=== PATIENT | male | born 1990 | race Caucasian/White ===

== ENCOUNTER 2025-06-04 16:50 | Emergency (ER) | payer OTHER, SELFPAY ==
[2025-06-04 17:00] VITALS: BP 100/68
[2025-06-04] MEDS: ADACEL 0.5 ML IM (18:37)
--- NOTE | 2025-06-04 19:25 | ED.SKININJ ---
HPI-Injury
General
Chief Complaint: Skin Surface Trauma
Source: patient
Exam Limitations: none
Time Seen by Provider: 06/04/25 17:58
Nursing documentation reviewed up to this point in time: agreed with
History of Present Illness-Injury
Is this injury a work related problem?: No
Is pt an associate of [facility]?: No
Initial Injury comments:
Patient to ED with crush injury to left middel finger. He states he was trying to hang a heavy clock and it fell. Pain and swelling to distal left 3rd finger. Small laceration to dorsum of distal finger. Injury occurred just [employer]
Past History
Past History
ED Past Medical History: None
ED Past Surgical History: None
Social History
Tobacco: Non-smoker
Alcohol: Occasional
Personal:
Living: alone
Employment: Employed
Review of Systems
Review of Systems
Allergies reviewed?: Yes
All Other Systems: ROS reviewed and negative except as documented in HPI and ROS
Constitutional: Reports no symptoms
Musculoskeletal: Reports joint pain (Pain to left distal third finger)
Skin: Reports other (laceration to left distal 3rd finger)
Neurological: Reports no symptoms
Psychiatric: Reports no symptoms
Skin Exam
Laceration
Left Distal Third Finger:
Length in cm: 1
Orientation: horizontal
Type of Laceration: simple
Any active bleeding?: low grade venous oozing
Distal skin color and temperature: normal-warm & good color
Normal distal neurovascular exam: Yes
Range of motion: full
Phy Exam
General Physical Exam
General Presentation: well appearing and mild distress
General age: appears stated age
General Skin: warm and dry
General Habitus: normal
Musculoskeletal Exam
Musculoskeletal Exam: neuro vasc intact
Skin Exam
Skin Exam: normal color, warm/dry and no rash
Psychiatric Exam
Psychiatric Exam: normal mood/affect
Course
Orders/Labs/Results
Orders:
Orders
06/04/25 17:05
Finger(s)/Thumb 2 View Lt [CR Finger(s)/thumb Min 2 Vw Lt] Urgent
Comment:
Reason For Exam: crush injury
Indicate Which Finger:: Middle Finger
06/04/25 18:30
Tetanus/Diphth/Acelpertussis [Adacel] 0.5 ml IM .ONCE ONE
Vital Signs
Initial and Last Documented VS:
Initial Vital Signs
Temp Pulse Resp BP Pulse Ox
97.9 F 70 16 100/68 97
06/04/25 17:00 06/04/25 17:00 06/04/25 17:00 06/04/25 17:00 06/04/25 17:00
Last Documented Vital Signs
Temp Pulse Resp BP Pulse Ox
97.9 F 70 16 100/68 97
06/04/25 17:00 06/04/25 17:00 06/04/25 17:00 06/04/25 17:00 06/04/25 17:00
Procedures
Laceration Closure
Left Distal Third Finger:
Status of Wound: clean
Description of Wound Edges: sharp
Preparation: cleaned with saline and cleaned with Betadine
Anesthesia: 1% Lidocaine and Digital-Regional
Revision/Debridement: routine- no revision
Wound exploration: explored to base- no FB
Type of Closure: Dermabond-skin glue
*Radiology
Radiology exam reviewed: radiology read reviewed
*Pulse Oximetry
SaO2: 97
Oxygen Mode of Delivery: Room air
Patient hypoxic: no
*Critical Care Note
Total Time (30-74mins, 75-104mins- exclusive of procedures): Not Applicable
Update Note
Update Note:
Patient to ED with crush injury to left distal 3rd finger. Xray confirms comminuted fraccture to distal phalanx of 3rd finger. No evidence of tendon injury to finger. He has a small laceration to dorsal aspect of finger over DIP joint. Closed
with dermabond.. Steristrips and splint applied. He is discharged home and will follow up with PCP. Given instructions on s/s to return to ED and he is agreeable to plan
ED Attending Note
-
Portions of this chart may have been created with voice recognition software.� Occasional wrong word or��sound alike� substitutions may have occurred due to the inherent limitations of voice recognition software.
Discharge Plan
Departure
Patient Disposition: Home (Routine Discharge)
Date of Disposition: 06/04/25
Time of Disposition: 18:41
Patient with high blood pressure during this ER visit?: No
Condition: Good
Covid-19: Not Applicable
Discharge Problem:
Crushing injury of finger, Finger fracture, Laceration of finger
Instructions: Laceration Repair With Glue (DC), Finger Fracture ED, Cold therapy for pain, Ibuprofen
Prescriptions:
No Action
cephalexin 500 MG capsule
500 mg PO BID Qty: 20 0RF
famciclovir 500 MG tablet
500 mg PO TID Qty: 21 0RF
hydrocodone-acetaminophen 1 TABLET tablet
1 tab PO Q4HPRN PRN (Reason: pain) Qty: 15 0RF
Referrals:
UNKNOWN,NO INTERVIEW [Family Provider]
Activity Restrictions/Additional Instructions:
Follow up with your family doctor
Interventions
Interventions:
*Risk Screen - Suicide Last Done: 06/04/25 17:00
*General Assessment Last Done: 06/04/25 17:00
*Nursing Disposition Last Done: 06/04/25 18:46
ED-Skin Assessment Last Done: 06/04/25 18:05
Discharge Date and Time
Discharge Date/Time: 06/04/25 18:46
Print Language: CHINESE
Musculoskeletal Injury Exam
Musculoskeletal Injury Exam
Left Distal Third Finger:
Pain with Movement?: Moderate
Tender to palpation?: Moderate
Soft tissue swelling?: Moderate
External deformity and angulation?: None
Joint effusion?: None
Contusion?: Moderate
Hematoma-local bleeding into tissue?: Moderate
Strain- Sprain- Tear (Connective tissue injury)?: None
Crepitus with movement?: No
Joint instability?: No
Malalignment/deformity?: No
Range of motion: Limited
Distal skin color and temperature: normal-warm & good color
Capillary Refill: normal
Normal distal neurovascular exam?: Yes
Peripheral Pulses: radial (left): 3+
== END 2025-06-04 18:46 | disposition home or self-care (01) ==
LOC: EMR 16:50
PROVIDERS: EMERGENCY PHYSICIAN Emergency Medicine
DX: S67.193A Crushing injury of left middle finger, initial encounter (principal); S62.663A Nondisplaced fracture of distal phalanx of left middle finger, initial encounter for closed fracture; S61.213A Laceration without foreign body of left middle finger without damage to nail, initial encounter; W23.0XXA Caught, crushed, jammed, or pinched between moving objects, initial encounter; Z23 Encounter for immunization
CPT/HCPCS: 99283; 12001; 90471; 73140; 90715